=== PATIENT | male | born 1995 | race Caucasian/White ===

== ENCOUNTER 2019-07-02 01:12 | Emergency (ER) | payer BC ==
[2019-07-02 03:49] LABS: #Eosinphils 0.1 thou/uL (0.0-0.7); #Lymphocytes 1.5 thou/uL (1.20-3.40); #Monocytes 0.4 thou/uL (0.11-0.59); #Neutrophils 2.7 thou/uL (1.40-6.50); %Basophils 0.9 % (0.0-1.0); %Monocytes 8.4 % (0.0-10.0); %Neutrophils 55.7 % (42.0-75.0); Hemoglobin 12.9 g/dL (14.0-18.0); Mean Corpuscular HGB CONC 33.3 g/dL (32.0-36.0); Mean Corpuscular Hemoglobin 29.4 pg (27.0-31.0); Mean Corpuscular Volume 88.3 fL (78.0-98.0); Mean Platelet Volume 8.6 fL (7.4-10.4); Platelet Count 138 thou/uL (130-400); RBC Distribution Width 12.3 % (11.5-14.5); White Blood Cell (WBC) Count 4.8 thou/uL (4.8-10.8)
[2019-07-02 04:10] LABS: ALT (SGPT) 16 U/L (8-55); AST (SGOT) 20 U/L (5-34); Albumin 4.3 g/dL (3.5-5.0); Alkaline Phosphatase 68 U/L (40-110); Anion Gap 11 mmol/L (10-20); BUN (Urea Nitrogen) 10 mg/dL (8.9-20.6); Bilirubin, Total 0.4 mg/dL (0.2-1.2); Calc. Creatinine Clearance 0 mL/min (70-130); Carbon Dioxide 26 mmol/L (22-29); Chloride 104 mmol/L (98-107); Estimated GFR-MDRD Greater than 90; Globulin 2.2 g/dL (2.4-3.5); Glucose 79 mg/dL (70-105); Lipase 39 U/L (8-78); Potassium 3.7 mmol/L (3.5-5.1); Protein, Total 6.5 g/dL (6.0-8.3); Sodium 137 mmol/L (136-145)
[2019-07-02] MEDS ORDERED: Haloperidol Lactate 5 MG/ML VIAL ONE (06:45)
[2019-07-02] MEDS ORDERED: diphenhydrAMINE 50 MG/ML VIAL ONE (06:45)
[2019-07-02 08:18] LABS: Bilirubin Negative (Negative); Blood, Urine Negative (Negative); Clarity Clear (Clear); Glucose, Urine (Dipstick) Normal (Negative); Leukocyte Negative Leu/uL (Negative); Nitrite Negative (Negative); Protein, Urine (Dipstick) 20 mg/dL (Neg-Trace); Urobilinogen Normal mg/dL (Less than 2)
--- NOTE | 2019-07-02 09:33 | CT ---
PRELIMINARY REPORT/[facility]/EMERGENCY AFTER HOURS PROCEDURE: PROCEDURE INFORMATION: Exam: CT Abdomen And Pelvis With Contrast Exam date and time: 07/02/2019 3:09 AM Age: 24 years old Clinical history: Abdominal pain; Generalized; Patient HX: Abd starting today, has chronic pacnreatit is. And has a g tube to stomach. TECHNIQUE: Imaging protocol: Computed tomography of the abdomen and pelvis with intravenous contrast. COMPARISON: No relevant prior studies available. FINDINGS: Tubes, catheters and devices: Percutaneous jejunostomy tube in left upper abdomen. Liver: Normal. No mass. Gallbladder and bile ducts: Gallbladder not identified - surgical clips present in fossa. Pancreas: Pancreas appears normal. Spleen: Normal. No splenomegaly. Adrenals: Normal. No mass. Kidneys and ureters: Normal. No hydronephrosis. Stomach and bowel: No evidence of small bowel obstruction. Appendix: Appendix - not identified. No pericecal inflammatory changes. Intraperitoneal space: Unremarkable. No free air. No significant fluid collection. Vasculature: Unremarkable. No abdominal aortic aneurysm. Lymph nodes: Unremarkable. No enlarged lymph nodes. Bladder: Unremarkable as visualized. Reproductive: Prostate appears within normal limits. Bones/joints: Unremarkable. No acute fracture. Soft tissues: Numerous surgical clips in right upper abdomen. IMPRESSION: 1. No evidence of small bowel obstruction. 2. Pancreas appears normal. -- Please correlate with patient pancreas enzyme levels to exclude pancre atitis. Thank you for allowing us to participate in the care of your patient. Dictated and Authenticated by: Marlys Jane MD 07/02/2019 3:42 AM Central Time ([place] & [place]) FINAL REPORT EMERGENT AFTER HOURS CT OF ABDOMEN AND PELVIS PERFORMED WITH COTNRAST ENHANCEMENT: HISTORY: Abdominal pain. History of chronic pancreatitis. COMPARISON: A 08/10/2018 study. FINDINGS: The lung bases are clear. The liver shows no focal masses. The spleen is within normal limits. Pancreas region shows no infla mmatory change. The gallbladder has been removed. Gastrostomy tube seen on the previous examination is no longer present. There is a jejunostomy tube noted. Right and left adrenal glands and right and left kidneys are normal in size and appearance. No signi ficant periaortic mesenteric adenopathy. CT OF PELVIS PERFORMED WITH CONTRAST ENHANCEMENT: There is no evidence of adenopathy, mass, or free fluid. An appendix is not definitely identified, b ut I see no inflammatory change in this region. IMPRESSION: 1. No abnormalities of the abdomen or pelvis. 2. This report is in agreement with the temporary report that was issued by [facility]. POS: [facility]
== END 2019-07-02 07:57 | disposition home or self-care (01) ==
LOC: ERS 01:12
DX: R10.9 Unspecified abdominal pain (principal); R10.817 Generalized abdominal tenderness; Z79.51 Long term (current) use of inhaled steroids; Z79.899 Other long term (current) drug therapy
CPT/HCPCS: 36415; 74177; 80053; 81003; 83690; 85025; 96372; 96374; 96375; J0500; J1200; J1630

== ENCOUNTER 2020-01-21 16:26 | Emergency (ER) | payer BC, OTHER ==
--- NOTE | 2020-01-21 17:24 | RAD ---
KUB INDICATION: Abdominal pain COMPARISON: CT the abdomen and pelvis dated July 02, 2019 FINDINGS: Bowel gas: Unobstructed. There is a percutaneous jejunostomy tube within the left lower quadrant of t he abdomen. Lung bases: Clear. Additional findings: There is a new generator pack with leads projecting cephalad to the left hemitho rax. There are numerous surgical clips again seen within the upper abdomen. Osseous structures: No acute osseous abnormality is demonstrated. IMPRESSION: 1. Stable percutaneous left lower quadrant jejunostomy tube. 2. New generator pack overlying the right mid abdomen with leads projecting cephalad toward the left hemithorax. 3. Bowel gas pattern appears nonobstructed.
[2020-01-21] MEDS ORDERED: Haloperidol Lactate 5 MG/ML VIAL ONE (21:49)
[2020-01-21] MEDS ORDERED: Lorazepam 2 MG/ML VIAL ONE (21:49)
[2020-01-21] MEDS ORDERED: Ketamine 50 MG/ML (10ML VIAL) ONE (22:39)
[2020-01-22] MEDS ORDERED: hydrOXYzine 25 MG TAB ONE (10:44)
[2020-01-22] MEDS ORDERED: Ziprasidone 20 MG CAP ONE ×3 (16:12→22:27)
[2020-01-22] MEDS ORDERED: Haloperidol Lactate 5 MG/ML VIAL ONE (16:26)
[2020-01-23] MEDS ORDERED: Ondansetron ODT 4 MG TAB ONE ×2 (12:03→18:57)
[2020-01-23] MEDS ORDERED: Lorazepam 1 MG TAB ONE (12:03)
[2020-01-23 12:47] LABS: SARS-CoV-2 MS2 Positive; SARS-CoV-2 N Gene Negative; SARS-CoV-2 S Gene Negative; SARS-CoV-2 orf1ab Negative
[2020-01-23] MEDS ORDERED: hydrOXYzine 25 MG TAB ONE (18:57)
[2020-01-24] MEDS ORDERED: traZODone HCl 50 MG TAB ONE (01:15)
[2020-01-24] MEDS ORDERED: risperiDONE 1 MG TAB ONE (01:15)
[2020-01-24] MEDS ORDERED: Ondansetron ODT 4 MG TAB ONE (01:26)
[2020-01-24] MEDS ORDERED: Ziprasidone 20 MG VIAL ONE ×2 (11:20→18:22)
[2020-01-24] MEDS ORDERED: Ondansetron ODT 8 MG TAB ONE ×2 (15:38→22:34)
[2020-01-24] MEDS ORDERED: Metoclopramide HCl 10 MG TAB ONE (20:05)
[2020-01-24] MEDS ORDERED: hydrOXYzine 25 MG TAB ONE ×2 (22:27)
[2020-01-25] MEDS ORDERED: Haloperidol Lactate 5 MG/ML VIAL ONE (00:33)
[2020-01-25] MEDS ORDERED: Ibuprofen 200 MG TAB ONE (04:56)
[2020-01-25] MEDS ORDERED: Ondansetron ODT 8 MG TAB ONE (08:46)
[2020-01-25] MEDS ORDERED: Docusate 100 MG CAP PO SCH (09:00)
[2020-01-25] MEDS ORDERED: Ziprasidone 20 MG CAP ONE (09:09)
== END 2020-01-25 15:34 ==
LOC: ERS 16:26
DX: Z02.89 Encounter for other administrative examinations (principal); F31.9 Bipolar disorder, unspecified; Z79.899 Other long term (current) drug therapy
CPT/HCPCS: 74018; 87635; 96372; J1630; J2060; J3486; Q0162; U0003

== ENCOUNTER 2020-02-05 19:13 | Emergency (ER) | payer BC ==
[2020-02-05] MEDS ORDERED: Lidocaine Viscous Sol 2% 15 ml UD Cup ONE (19:33)
== END 2020-02-05 20:16 | disposition home or self-care (01) ==
LOC: ERS 19:13
DX: K94.20 Gastrostomy complication, unspecified (principal); F31.9 Bipolar disorder, unspecified; Z79.899 Other long term (current) drug therapy
CPT/HCPCS: 99282

== ENCOUNTER 2021-07-11 12:40 | Emergency (ER) | payer MEDICARE, MEDICAID ==
[~2021-07-11 12:40] MED LIST: Iopamidol-370 76% 500 ML 1 ML ONE
[2021-07-11] MEDS ORDERED: Pantoprazole 40 MG VIAL ONE (14:13)
[2021-07-11] MEDS ORDERED: HYDROmorphone 0.5 MG/0.5 ML SYRINGE ONE ×2 (14:13→16:33)
[2021-07-11] MEDS ORDERED: Ondansetron PF 4 MG/2 ML Vial ONE (14:13)
[2021-07-11 14:21] LABS: #Lymphocytes 1.1 thou/uL (1.20-3.40); #Monocytes 0.5 thou/uL (0.11-0.59); #Neutrophils 3.3 thou/uL (1.40-6.50); %Basophils 0.6 % (0.0-1.0); %Eosinophils 0.7 % (0.0-10.0); %Lymphocytes 21.3 % (21.0-51.0); %Monocytes 10.8 % (0.0-10.0); %Neutrophils 66.6 % (42.0-75.0); Hemoglobin 13.1 g/dL (14.0-18.0); Mean Corpuscular HGB CONC 33.7 g/dL (32.0-36.0); Mean Corpuscular Volume 89.1 fL (78.0-98.0); Mean Platelet Volume 7.3 fL (7.4-10.4); Platelet Count 227 thou/uL (130-400); RBC Distribution Width 12.2 % (11.5-14.5); Red Blood Cell (RBC) Count 4.36 mill/uL (4.70-6.10); White Blood Cell (WBC) Count 4.9 thou/uL (4.8-10.8)
[2021-07-11 14:41] LABS: ALT (SGPT) 33 U/L (8-55); AST (SGOT) 26 U/L (5-34); Albumin 4.2 g/dL (3.5-5.0); Alkaline Phosphatase 63 U/L (40-110); Anion Gap 14 mmol/L (10-20); BUN (Urea Nitrogen) 8 mg/dL (8.9-20.6); Bilirubin, Total 0.4 mg/dL (0.2-1.2); Calc. Creatinine Clearance 0 mL/min (70-130); Calcium 9.6 mg/dL (7.8-10.44); Carbon Dioxide 27 mmol/L (22-29); Chloride 102 mmol/L (98-107); Globulin 2.9 g/dL (2.4-3.5); Glucose 107 mg/dL (70-105); Lipase 300 U/L (8-78); Protein, Total 7.1 g/dL (6.0-8.3); Sodium 139 mmol/L (136-145)
== END 2021-07-11 16:44 | disposition home or self-care (01) ==
LOC: ERS 12:40
DX: K86.1 Other chronic pancreatitis (principal); K31.84 Gastroparesis; Z87.891 Personal history of nicotine dependence
CPT/HCPCS: 36415; 74177; 80053; 83605; 83690; 85025; 96374; 96375; 96376; C9113; J1170; J2405; Q9967

== ENCOUNTER 2022-11-04 21:32 | Emergency (ER) | payer MEDICARE, MEDICAID ==
[2022-11-04 22:12] LABS: #Eosinphils 0.1 thou/uL (0.0-0.7); #Lymphocytes 1.1 thou/uL (1.20-3.40); #Monocytes 0.9 thou/uL (0.11-0.59); #Neutrophils 5.5 thou/uL (1.40-6.50); %Basophils 0.6 % (0.0-1.0); %Eosinophils 1.1 % (0.0-10.0); %Lymphocytes 13.9 % (21.0-51.0); %Monocytes 11.5 % (0.0-10.0); %Neutrophils 72.9 % (42.0-75.0); Hemoglobin 13.2 g/dL (14.0-18.0); Mean Corpuscular HGB CONC 30.7 g/dL (32.0-36.0); Mean Corpuscular Hemoglobin 26.2 pg (27.0-31.0); Mean Corpuscular Volume 85.4 fl (78.0-98.0); Mean Platelet Volume 8.3 fL (7.4-10.4); Platelet Count 379 10x3/uL (130-400); Red Blood Cell (RBC) Count 5.02 mill/uL (4.70-6.10); White Blood Cell (WBC) Count 7.6 10x3/uL (4.8-10.8)
[2022-11-04 22:33] LABS: ALT (SGPT) 28 U/L (8-55); AST (SGOT) 23 U/L (5-34); Albumin 4.4 g/dL (3.5-5.0); Alkaline Phosphatase 103 U/L (40-110); Anion Gap 15 mmol/L (10-20); BUN (Urea Nitrogen) 11 mg/dL (8.9-20.6); Bilirubin, Total 0.3 mg/dL (0.2-1.2); Calc. Creatinine Clearance 0 mL/min (70-130); Calcium 9.4 mg/dL (7.8-10.44); Carbon Dioxide 24 mmol/L (22-29); Chloride 99 mmol/L (98-107); Estimated GFR 122; Globulin 2.9 g/dL (2.4-3.5); Glucose 169 mg/dL (70-105); Lipase Less than 4 U/L (8-78); Potassium 3.5 mmol/L (3.5-5.1); Protein, Total 7.3 g/dL (6.0-8.3); Sodium 134 mmol/L (136-145)
[2022-11-04] MEDS ORDERED: HYDROcodone/Acetaminophen 5/325 mg Tablet ONE (23:29)
[2022-11-04] MEDS ORDERED: Metoclopramide HCl 10 MG TAB ONE (23:36)
[2022-11-05 01:18] LABS: SARS-CoV-2 NAA Rapid Test Not Detected (NotDetected)
[2022-11-05] MEDS ORDERED: HYDROcodone/Acetaminophen 5/325 mg Tablet ONE (05:51)
[2022-11-05] MEDS ORDERED: Ondansetron PF 4 MG/2 ML Vial ONE (05:51)
[2022-11-05] MEDS ORDERED: HYDROmorphone 0.5 MG/0.5 ML SYRINGE ONE ×2 (06:00→07:43)
[2022-11-05] MEDS ORDERED: Metoclopramide HCl 10 MG/2 ML VIAL ONE (06:26)
[2022-11-05] MEDS ORDERED: Promethazine HCl 12.5 MG in Sodium Chloride 0.9% 50 ML IVPB SCH (08:00)
== END 2022-11-05 08:40 | disposition short-term general hospital (02) ==
LOC: ERS 21:32
DX: K94.23 Gastrostomy malfunction (principal); E11.9 Type 2 diabetes mellitus without complications; Z20.822 Contact with and (suspected) exposure to COVID-19
CPT/HCPCS: 71045; 80053; 83690; 85025; U0002; 36415; 96365; 96375; 96376; J1170; J2405; J2550; J2765

== ENCOUNTER 2022-12-11 18:35 | Emergency (ER) | payer BC, MEDICARE, MEDICAID ==
[2022-12-11] MEDS ORDERED: Morphine 4 MG/ML VIAL ONE ×3 (19:13→23:15)
[2022-12-11] MEDS ORDERED: Ondansetron ODT 4 MG TAB ONE (19:13)
[2022-12-11 20:24] LABS: Bilirubin Negative (Negative); Blood, Urine Negative (Negative); Clarity Clear (Clear); Glucose, Urine (Dipstick) Normal (Negative); Ketone, Urine Trace mg/dL (Negative); Leukocyte Negative Leu/uL (Negative); Nitrite Negative (Negative); Protein, Urine (Dipstick) 10 mg/dL (Neg-Trace)
[2022-12-11 22:28] LABS: #Eosinphils 0.1 thou/uL (0.0-0.7); #Lymphocytes 1.6 thou/uL (1.20-3.40); #Monocytes 0.8 thou/uL (0.11-0.59); #Neutrophils 3.5 thou/uL (1.40-6.50); %Basophils 0.8 % (0.0-1.0); %Eosinophils 1.7 % (0.0-10.0); %Lymphocytes 26.5 % (21.0-51.0); %Monocytes 12.9 % (0.0-10.0); %Neutrophils 58.1 % (42.0-75.0); Hemoglobin 11.6 g/dL (14.0-18.0); Mean Corpuscular HGB CONC 31.8 g/dL (32.0-36.0); Mean Corpuscular Hemoglobin 28.7 pg (27.0-31.0); Platelet Count 462 10x3/uL (130-400); RBC Distribution Width 15.5 % (11.5-14.5); Red Blood Cell (RBC) Count 4.07 mill/uL (4.70-6.10); White Blood Cell (WBC) Count 5.9 10x3/uL (4.8-10.8)
[2022-12-11 22:50] LABS: ALT (SGPT) 44 U/L (8-55); AST (SGOT) 47 U/L (5-34); Alkaline Phosphatase 103 U/L (40-110); Anion Gap 12 mmol/L (10-20); BUN (Urea Nitrogen) 12 mg/dL (8.9-20.6); Bilirubin, Total 0.2 mg/dL (0.2-1.2); Calc. Creatinine Clearance 0 mL/min (70-130); Calcium 9.2 mg/dL (7.8-10.44); Carbon Dioxide 26 mmol/L (22-29); Chloride 107 mmol/L (98-107); Estimated GFR 125; Globulin 2.5 g/dL (2.4-3.5); Glucose 204 mg/dL (70-105); Potassium 4.5 mmol/L (3.5-5.1); Protein, Total 6.5 g/dL (6.0-8.3); Sodium 140 mmol/L (136-145)
== END 2022-12-11 23:20 | disposition home or self-care (01) ==
LOC: ERS 18:35
DX: K94.23 Gastrostomy malfunction (principal); E11.9 Type 2 diabetes mellitus without complications; Z87.891 Personal history of nicotine dependence; Z79.4 Long term (current) use of insulin
CPT/HCPCS: 36415; 74018; 80053; 81003; 85025; 87070; 87077; 87186; 87205; 96372; J2270; Q0162

== ENCOUNTER 2023-01-19 12:30 | Emergency (ER) | payer MEDICARE ==
[~2023-01-19 12:30] MED LIST changes: -Iopamidol-370 76% 500 ML 1 ML ONE; +Iopamidol-370 76% 500 ML MDV (1 ML CHARGE) ONE
[2023-01-19 13:49] LABS: #Basophils 0.1 thou/uL (0.0-0.2); #Monocytes 1.1 thou/uL (0.11-0.59); #Neutrophils 8.3 thou/uL (1.40-6.50); %Basophils 0.5 % (0.0-1.0); %Lymphocytes 7.5 % (21.0-51.0); %Monocytes 10.9 % (0.0-10.0); %Neutrophils 80.9 % (42.0-75.0); Hemoglobin 14.3 g/dL (14.0-18.0); Mean Corpuscular HGB CONC 32.5 g/dL (32.0-36.0); Mean Corpuscular Volume 86.1 fl (78.0-98.0); Mean Platelet Volume 9.2 fL (7.4-10.4); Platelet Count 413 10x3/uL (130-400); RBC Distribution Width 14.9 % (11.5-14.5); Red Blood Cell (RBC) Count 5.11 mill/uL (4.70-6.10); White Blood Cell (WBC) Count 10.2 10x3/uL (4.8-10.8)
[2023-01-19 14:19] LABS: ALT (SGPT) 52 U/L (8-55); AST (SGOT) 25 U/L (5-34); Albumin 4.8 g/dL (3.5-5.0); Alkaline Phosphatase 117 U/L (40-110); Anion Gap 14 mmol/L (10-20); BUN (Urea Nitrogen) 15 mg/dL (8.9-20.6); Bilirubin, Total 0.4 mg/dL (0.2-1.2); CK (CPK) 127 U/L (30-200); Calc. Creatinine Clearance 0 mL/min (70-130); Calcium 9.9 mg/dL (7.8-10.44); Carbon Dioxide 27 mmol/L (22-29); Chloride 97 mmol/L (98-107); Estimated GFR 118; Globulin 3.2 g/dL (2.4-3.5); Glucose 181 mg/dL (70-105); Lipase Less than 4 U/L (8-78); Sodium 134 mmol/L (136-145)
[2023-01-19] MEDS ORDERED: Ondansetron PF 4 MG/2 ML Vial ONE ×3 (14:24→17:45)
[2023-01-19] MEDS ORDERED: Morphine 4 MG/ML VIAL ONE ×2 (16:25→17:45)
[2023-01-19 16:58] LABS: Bacteria/HPF None Seen HPF (None Seen); Bilirubin Negative (Negative); Blood, Urine Trace (Negative); CAUTI Indications for Culture Dysuria,urgency,freq; Clarity Clear (Clear); Glucose, Urine (Dipstick) Normal (Negative); Ketone, Urine 60 mg/dL (Negative); Leukocyte Negative Leu/uL (Negative); Nitrite Negative (Negative); Protein, Urine (Dipstick) 30 mg/dL (Neg-Trace); RBC/HPF None Seen HPF (0-3); Specific Gravity, Urine 1.036 (1.002-1.036); Squamous Epithelial None Seen HPF (0-3); WBC/HPF 0-3 HPF (0-3); pH, Urine 6.5 (5.0-9.0)
[2023-01-19 17:00] LABS: Urine Culture Reflex No No
[2023-01-19] MEDS ORDERED: Pantoprazole 40 MG VIAL ONE (17:45)
[2023-01-19] MEDS ORDERED: Metoclopramide HCl 10 MG/2 ML VIAL ONE (17:48)
[2023-01-19] MEDS ORDERED: HYDROcodone/Acetaminophen 5/325 mg Tablet ONE (19:26)
== END 2023-01-19 19:37 | disposition home or self-care (01) ==
LOC: ERS 12:30
DX: K52.9 Noninfective gastroenteritis and colitis, unspecified (principal); E86.0 Dehydration; R11.10 Vomiting, unspecified; E11.9 Type 2 diabetes mellitus without complications; Z87.891 Personal history of nicotine dependence; Z79.4 Long term (current) use of insulin
CPT/HCPCS: 36415; 74177; 80053; 81001; 82550; 83690; 85025; 96361; 96365; 96375; 96376; C9113; J2270; J2405; J2765; Q9967

== ENCOUNTER 2023-01-20 13:20 | Inpatient (IN) | payer BC, MEDICARE, MEDICAID ==
[2023-01-20 14:25] LABS: #Monocytes 0.4 thou/uL (0.11-0.59); #Neutrophils 5.5 thou/uL (1.40-6.50); %Basophils 0.6 % (0.0-1.0); %Lymphocytes 7.9 % (21.0-51.0); %Neutrophils 85.2 % (42.0-75.0); Hemoglobin 14.8 g/dL (14.0-18.0); Mean Corpuscular HGB CONC 32.6 g/dL (32.0-36.0); Mean Corpuscular Hemoglobin 28.5 pg (27.0-31.0); Mean Corpuscular Volume 87.3 fl (78.0-98.0); Mean Platelet Volume 9.5 fL (7.4-10.4); Platelet Count 400 10x3/uL (130-400); RBC Distribution Width 14.7 % (11.5-14.5); White Blood Cell (WBC) Count 6.5 10x3/uL (4.8-10.8)
[2023-01-20] MEDS ORDERED: Morphine 4 MG/ML VIAL ONE ×2 (14:28→15:45)
[2023-01-20] MEDS ORDERED: Pantoprazole 40 MG VIAL ONE (14:28)
[2023-01-20] MEDS ORDERED: Promethazine HCl 25 MG in Sodium Chloride 0.9% 50 ML IVPB SCH (14:45)
[2023-01-20 14:49] LABS: ALT (SGPT) 44 U/L (8-55); AST (SGOT) 25 U/L (5-34); Albumin 4.6 g/dL (3.5-5.0); Alkaline Phosphatase 108 U/L (40-110); Anion Gap 18 mmol/L (10-20); BUN (Urea Nitrogen) 14 mg/dL (8.9-20.6); Bilirubin, Total 0.5 mg/dL (0.2-1.2); Calc. Creatinine Clearance 0 mL/min (70-130); Calcium 9.1 mg/dL (7.8-10.44); Carbon Dioxide 21 mmol/L (22-29); Chloride 99 mmol/L (98-107); Estimated GFR 124; Glucose 109 mg/dL (70-105); Lipase Less than 4 U/L (8-78); Potassium 3.7 mmol/L (3.5-5.1); Protein, Total 7.6 g/dL (6.0-8.3); Sodium 134 mmol/L (136-145)
[2023-01-20] MEDS ORDERED: metroNIDAZOLE 500 MG/100 ML BAG ONE (15:45)
[2023-01-20] MEDS ORDERED: Acetaminophen 325 MG TAB PO PRN (16:25)
[2023-01-20] MEDS ORDERED: Glucagon 1 MG/ML KIT IM PRN (16:29)
[2023-01-20] MEDS ORDERED: Dextrose 50% Abboject 50 ML SYRINGE SLOW IVP PRN (16:29)
[2023-01-20] MEDS ORDERED: Dextrose 5% in Water 1,000 ML IV PRN (16:29)
[2023-01-20] MEDS: Sodium Chloride 0.9% 1,000 ML IV SCH (17:19)
[2023-01-20 17:34] VITALS: BMI 20.3
[2023-01-20] MEDS: Morphine 2 MG/ML VIAL SLOW IVP PRN ×2 (18:12→21:56)
[2023-01-20] MEDS: Ondansetron PF 4 MG/2 ML Vial IVP PRN (18:14)
[2023-01-20] MEDS: RisperDAL Oral Solution 1 MG/ML UDCUP PO SCH (20:50)
[2023-01-20] MEDS: traZODone HCl 150 MG TAB PO SCH (20:50)
[2023-01-20] MEDS ORDERED: Non-Formulary Item 1 EACH (Lansoprazole [Prevacid] 30 MG Capsule.Dr) PO SCH (21:00)
[2023-01-20] MEDS: metroNIDAZOLE 500 MG in Premix Bag 1 BAG IVPB SCH (22:00)
[2023-01-21] MEDS: HumaLOG 300 UNITS/3 ML VIAL SC PRN (01:37)
[2023-01-21] MEDS: Ondansetron PF 4 MG/2 ML Vial IVP PRN ×2 (03:40→16:05)
[2023-01-21] MEDS: Morphine 2 MG/ML VIAL SLOW IVP PRN ×5 (03:40→21:15)
[2023-01-21] MEDS: metroNIDAZOLE 500 MG in Premix Bag 1 BAG IVPB SCH ×3 (05:17→21:16)
[2023-01-21 06:07] LABS: #Eosinphils 0.1 thou/uL (0.0-0.7); #Monocytes 0.7 thou/uL (0.11-0.59); #Neutrophils 1.3 thou/uL (1.40-6.50); %Basophils 1.1 % (0.0-1.0); %Eosinophils 1.9 % (0.0-10.0); %Lymphocytes 43.2 % (21.0-51.0); %Monocytes 18.4 % (0.0-10.0); %Neutrophils 35.4 % (42.0-75.0); Hemoglobin 11.9 g/dL (14.0-18.0); Mean Corpuscular HGB CONC 32.9 g/dL (32.0-36.0); Mean Corpuscular Hemoglobin 28.3 pg (27.0-31.0); Mean Platelet Volume 9.7 fL (7.4-10.4); Platelet Count 355 10x3/uL (130-400); RBC Distribution Width 14.6 % (11.5-14.5); Red Blood Cell (RBC) Count 4.21 mill/uL (4.70-6.10); White Blood Cell (WBC) Count 3.7 10x3/uL (4.8-10.8)
[2023-01-21] MEDS: Sodium Chloride 0.9% 1,000 ML IV SCH ×2 (06:28→14:58)
[2023-01-21 06:38] LABS: Anion Gap 13 mmol/L (10-20); BUN (Urea Nitrogen) 10 mg/dL (8.9-20.6); Calc. Creatinine Clearance 123 mL/min (70-130); Calcium 8.4 mg/dL (7.8-10.44); Carbon Dioxide 23 mmol/L (22-29); Chloride 104 mmol/L (98-107); Estimated GFR 127; Glucose 66 mg/dL (70-105); Potassium 3.2 mmol/L (3.5-5.1); Sodium 137 mmol/L (136-145)
[2023-01-21] MEDS: Pantoprazole 40 MG VIAL IVP SCH (08:07)
[2023-01-21] MEDS ORDERED: Potassium Chloride 20 MEQ TAB PER TUBE SCH (09:15)
[2023-01-21] MEDS: RisperDAL Oral Solution 1 MG/ML UDCUP PO SCH (11:40)
[2023-01-21] MEDS ORDERED: risperiDONE 1 MG TAB PO SCH (11:45)
[2023-01-21] MEDS: Insulin Glargine 30 UNITS/0.3 ML VIAL SC SCH (12:00)
[2023-01-21] MEDS: risperiDONE 1 MG TAB PO SCH (21:16)
[2023-01-21] MEDS: traZODone HCl 150 MG TAB PO SCH (23:18)
[2023-01-22] MEDS: HumaLOG 300 UNITS/3 ML VIAL SC PRN ×2 (00:02→05:42)
[2023-01-22] MEDS: Morphine 2 MG/ML VIAL SLOW IVP PRN ×5 (01:40→21:20)
[2023-01-22 05:52] LABS: #Eosinphils 0.1 thou/uL (0.0-0.7); #Monocytes 0.9 thou/uL (0.11-0.59); #Neutrophils 3.4 thou/uL (1.40-6.50); %Basophils 0.7 % (0.0-1.0); %Eosinophils 1.5 % (0.0-10.0); %Lymphocytes 19.4 % (21.0-51.0); %Monocytes 15.7 % (0.0-10.0); %Neutrophils 62.5 % (42.0-75.0); Hemoglobin 12.1 g/dL (14.0-18.0); Mean Corpuscular Hemoglobin 28.3 pg (27.0-31.0); Mean Corpuscular Volume 85.7 fl (78.0-98.0); Mean Platelet Volume 9.8 fL (7.4-10.4); Platelet Count 370 10x3/uL (130-400); RBC Distribution Width 14.8 % (11.5-14.5); Red Blood Cell (RBC) Count 4.28 mill/uL (4.70-6.10); White Blood Cell (WBC) Count 5.4 10x3/uL (4.8-10.8)
[2023-01-22 06:15] LABS: Anion Gap 9 mmol/L (10-20); BUN (Urea Nitrogen) 6 mg/dL (8.9-20.6); Calc. Creatinine Clearance 120 mL/min (70-130); Calcium 8.8 mg/dL (7.8-10.44); Carbon Dioxide 28 mmol/L (22-29); Chloride 105 mmol/L (98-107); Estimated GFR 126; Glucose 160 mg/dL (70-105); Potassium 4.3 mmol/L (3.5-5.1); Sodium 138 mmol/L (136-145)
[2023-01-22] MEDS: metroNIDAZOLE 500 MG in Premix Bag 1 BAG IVPB SCH ×3 (06:46→21:20)
[2023-01-22] MEDS: Pantoprazole 40 MG VIAL IVP SCH (08:52)
[2023-01-22] MEDS: risperiDONE 1 MG TAB PO SCH ×2 (08:53→21:20)
[2023-01-22] MEDS: Sodium Chloride 0.9% 1,000 ML IV SCH (11:47)
[2023-01-22] MEDS ORDERED: Ondansetron ORAL SOLN. 4 MG/5 ML UDCUP PO PRN (14:08)
[2023-01-22] MEDS: Insulin Glargine 30 UNITS/0.3 ML VIAL SC SCH (14:08)
[2023-01-22] MEDS ORDERED: Promethazine HCl 6.25 MG/5 ML Syrup PO PRN (14:22)
[2023-01-22] MEDS: Pancrelipase DR 12,000 1 CAP PO SCH (18:03)
[2023-01-22] MEDS ORDERED: Pancrelipase DR 12,000 1 CAP PO PRN (21:00)
[2023-01-22] MEDS: traZODone HCl 150 MG TAB PO SCH (21:20)
[2023-01-23] MEDS: Sodium Chloride 0.9% 1,000 ML IV SCH ×2 (02:58→08:45)
[2023-01-23] MEDS: Morphine 2 MG/ML VIAL SLOW IVP PRN ×2 (05:05→09:38)
[2023-01-23] MEDS: metroNIDAZOLE 500 MG in Premix Bag 1 BAG IVPB SCH (05:06)
[2023-01-23] MEDS: HumaLOG 300 UNITS/3 ML VIAL SC PRN (05:09)
[2023-01-23 06:17] LABS: #Basophils 0.1 thou/uL (0.0-0.2); #Eosinphils 0.2 thou/uL (0.0-0.7); #Monocytes 0.7 thou/uL (0.11-0.59); #Neutrophils 5.8 thou/uL (1.40-6.50); %Basophils 0.7 % (0.0-1.0); %Eosinophils 2.2 % (0.0-10.0); %Lymphocytes 17.1 % (21.0-51.0); %Monocytes 8.1 % (0.0-10.0); %Neutrophils 71.7 % (42.0-75.0); Hemoglobin 11.9 g/dL (14.0-18.0); Mean Corpuscular HGB CONC 32.4 g/dL (32.0-36.0); Mean Corpuscular Hemoglobin 28.5 pg (27.0-31.0); Mean Platelet Volume 9.9 fL (7.4-10.4); Platelet Count 346 10x3/uL (130-400); RBC Distribution Width 14.8 % (11.5-14.5); Red Blood Cell (RBC) Count 4.17 mill/uL (4.70-6.10); White Blood Cell (WBC) Count 8.1 10x3/uL (4.8-10.8)
[2023-01-23 08:13] VITALS: BP 105/50; TEMP 98.4
[2023-01-23] MEDS: Pancrelipase DR 12,000 1 CAP PO SCH ×2 (08:44→12:41)
[2023-01-23] MEDS: risperiDONE 1 MG TAB PO SCH (08:44)
[2023-01-23] MEDS: Pantoprazole 40 MG VIAL IVP SCH (08:45)
[2023-01-23] MEDS: Insulin Glargine 30 UNITS/0.3 ML VIAL SC SCH (12:41)
[2023-01-23 13:22] LABS: Anion Gap 14 mmol/L (10-20); BUN (Urea Nitrogen) 10 mg/dL (8.9-20.6); Calc. Creatinine Clearance 106 mL/min (70-130); Calcium 8.6 mg/dL (7.8-10.44); Carbon Dioxide 22 mmol/L (22-29); Chloride 103 mmol/L (98-107); Estimated GFR 121; Glucose 287 mg/dL (70-105); Potassium 3.5 mmol/L (3.5-5.1); Sodium 135 mmol/L (136-145)
[2023-01-23 23:11] LABS: Campy jejuni + coli by PCR Negative (Negative); STEC Shiga Toxin 1+2 Negative (Negative); Salmonella spp. by PCR Negative (Negative); Shigella spp + EIEC by PCR Negative (Negative)
== END 2023-01-23 14:07 | disposition home or self-care (01) | DRG 392 ==
LOC: ERS 13:20 → T4-B 16:58 → OBSVTOIN 01-21 15:32
PROVIDERS: ADMIT Internal Medicine; ATTEND Hospitalist
DX: K52.9 Noninfective gastroenteritis and colitis, unspecified (principal); E87.1 Hypo-osmolality and hyponatremia; F31.9 Bipolar disorder, unspecified; E11.9 Type 2 diabetes mellitus without complications; J45.909 Unspecified asthma, uncomplicated; F43.10 Post-traumatic stress disorder, unspecified; Z88.1 Allergy status to other antibiotic agents; Z91.040 Latex allergy status; Z88.0 Allergy status to penicillin; Z91.09 Other allergy status, other than to drugs and biological substances; Z88.5 Allergy status to narcotic agent; Z79.899 Other long term (current) drug therapy; Z98.890 Other specified postprocedural states; Z95.0 Presence of cardiac pacemaker; Z90.49 Acquired absence of other specified parts of digestive tract; Z90.81 Acquired absence of spleen; Z94.89 Other transplanted organ and tissue status
CPT/HCPCS: 36415; 36416; 74018; 74177; 80048; 80053; 81001; 82550; 83690; 85025; 87505; 96361; 96365; 96375; 96376; C9113; G0378; J0744; J0780; J1815; J2270; J2272; J2405; J2550; J2765; J7050; Q9967

== ENCOUNTER 2023-01-26 09:07 | Emergency (ER) | payer BC, MEDICARE, MEDICAID ==
[2023-01-26] MEDS ORDERED: Morphine 4 MG/ML VIAL ONE (10:37)
[2023-01-26 10:40] LABS: #Basophils 0.1 thou/uL (0.0-0.2); #Eosinphils 0.1 thou/uL (0.0-0.7); #Monocytes 0.9 thou/uL (0.11-0.59); #Neutrophils 16.7 thou/uL (1.40-6.50); %Basophils 0.4 % (0.0-1.0); %Eosinophils 0.7 % (0.0-10.0); %Lymphocytes 6.5 % (21.0-51.0); %Monocytes 4.5 % (0.0-10.0); %Neutrophils 87.5 % (42.0-75.0); Hemoglobin 11.4 g/dL (14.0-18.0); Mean Corpuscular HGB CONC 32.6 g/dL (32.0-36.0); Mean Corpuscular Hemoglobin 28.6 pg (27.0-31.0); Mean Corpuscular Volume 87.7 fl (78.0-98.0); Mean Platelet Volume 9.8 fL (7.4-10.4); Platelet Count 337 10x3/uL (130-400); RBC Distribution Width 15.5 % (11.5-14.5); Red Blood Cell (RBC) Count 3.99 mill/uL (4.70-6.10)
[2023-01-26 11:04] LABS: ALT (SGPT) 26 U/L (8-55); AST (SGOT) 19 U/L (5-34); Alkaline Phosphatase 78 U/L (40-110); Anion Gap 11 mmol/L (10-20); BUN (Urea Nitrogen) 14 mg/dL (8.9-20.6); Bilirubin, Total 0.3 mg/dL (0.2-1.2); Calc. Creatinine Clearance 0 mL/min (70-130); Calcium 8.8 mg/dL (7.8-10.44); Carbon Dioxide 26 mmol/L (22-29); Chloride 100 mmol/L (98-107); Estimated GFR 102; Globulin 2.3 g/dL (2.4-3.5); Glucose 334 mg/dL (70-105); Potassium 4.5 mmol/L (3.5-5.1); Protein, Total 6.3 g/dL (6.0-8.3); Sodium 132 mmol/L (136-145)
== END 2023-01-26 13:00 | disposition home or self-care (01) ==
LOC: ERS 09:07
DX: E11.65 Type 2 diabetes mellitus with hyperglycemia (principal); R10.11 Right upper quadrant pain; D72.829 Elevated white blood cell count, unspecified; Z79.899 Other long term (current) drug therapy; Z79.4 Long term (current) use of insulin; Z79.01 Long term (current) use of anticoagulants
CPT/HCPCS: 36415; 36416; 80053; 85025; 96374; J2270

== ENCOUNTER 2023-03-16 17:26 | Emergency (ER) | payer BC, MEDICARE ==
[2023-03-16 17:58] LABS: #Monocytes 0.4 thou/uL (0.11-0.59); #Neutrophils 8.2 thou/uL (1.40-6.50); %Basophils 0.3 % (0.0-1.0); %Lymphocytes 4.7 % (21.0-51.0); %Monocytes 4.7 % (0.0-10.0); %Neutrophils 90.1 % (42.0-75.0); Hematocrit 43.4 % (42.0-52.0); Hemoglobin 14.3 g/dL (14.0-18.0); Mean Corpuscular HGB CONC 32.9 g/dL (32.0-36.0); Mean Corpuscular Hemoglobin 28.3 pg (27.0-31.0); Mean Corpuscular Volume 85.8 fl (78.0-98.0); Mean Platelet Volume 9.3 fL (7.4-10.4); Platelet Count 366 10x3/uL (130-400); RBC Distribution Width 14.4 % (11.5-14.5); Red Blood Cell (RBC) Count 5.06 mill/uL (4.70-6.10); White Blood Cell (WBC) Count 9.1 10x3/uL (4.8-10.8)
[2023-03-16] MEDS ORDERED: Morphine 4 MG/ML VIAL ONE (17:59)
[2023-03-16] MEDS ORDERED: diphenhydrAMINE 50 MG/ML VIAL ONE (17:59)
[2023-03-16] MEDS ORDERED: Metoclopramide HCl 10 MG/2 ML VIAL ONE (17:59)
[2023-03-16] MEDS ORDERED: Morphine 2 MG/ML VIAL ONE (17:59)
[2023-03-16 18:23] LABS: ALT (SGPT) 132 U/L (8-55); AST (SGOT) 73 U/L (5-34); Albumin 4.9 g/dL (3.5-5.0); Alkaline Phosphatase 123 U/L (40-110); Anion Gap 14 mmol/L (10-20); BUN (Urea Nitrogen) 10 mg/dL (8.9-20.6); Bilirubin, Total 0.5 mg/dL (0.2-1.2); Calc. Creatinine Clearance 0 mL/min (70-130); Calcium 10.2 mg/dL (7.8-10.44); Carbon Dioxide 25 mmol/L (22-29); Chloride 101 mmol/L (98-107); Estimated GFR 118; Globulin 3.4 g/dL (2.4-3.5); Glucose 259 mg/dL (70-105); Lipase Less than 4 U/L (8-78); Magnesium 1.5 mg/dL (1.6-2.6); Potassium 4.1 mmol/L (3.5-5.1); Protein, Total 8.3 g/dL (6.0-8.3); Sodium 136 mmol/L (136-145)
[2023-03-16] MEDS ORDERED: Ondansetron PF 4 MG/2 ML Vial ONE (18:59)
[2023-03-16] MEDS ORDERED: Magnesium 2 GM/50 ML BAG (IN WATER) ONE (18:59)
[2023-03-16] MEDS ORDERED: Mag-Al 1200 mg/1200 mg/30 ML UDCUP ONE (19:17)
== END 2023-03-16 19:13 | disposition home or self-care (01) ==
LOC: ERS 17:26
DX: R11.2 Nausea with vomiting, unspecified (principal); R10.84 Generalized abdominal pain; E83.42 Hypomagnesemia; E11.9 Type 2 diabetes mellitus without complications; Z87.891 Personal history of nicotine dependence
CPT/HCPCS: 80053; 83690; 83735; 84484; 85025; 93005; 96361; 96365; 96367; 96375; J1200; J2270; J2272; J2405; J2765; J3475

== ENCOUNTER 2023-03-17 08:33 | Emergency (ER) | payer BC, MEDICARE ==
[2023-03-17] MEDS ORDERED: Haloperidol Lactate 5 MG/ML VIAL ONE (08:50)
[2023-03-17] MEDS ORDERED: Morphine 4 MG/ML VIAL ONE ×2 (09:27→11:05)
[2023-03-17] MEDS ORDERED: Promethazine HCl 25 MG/ML VIAL ONE (09:27)
[2023-03-17 09:59] LABS: #Basophils 0.1 thou/uL (0.0-0.2); #Monocytes 1.2 thou/uL (0.11-0.59); #Neutrophils 6.5 thou/uL (1.40-6.50); %Basophils 0.9 % (0.0-1.0); %Eosinophils 0.1 % (0.0-10.0); %Lymphocytes 10.6 % (21.0-51.0); %Monocytes 13.8 % (0.0-10.0); %Neutrophils 74.3 % (42.0-75.0); Hematocrit 40.4 % (42.0-52.0); Hemoglobin 13.2 g/dL (14.0-18.0); Mean Corpuscular HGB CONC 32.7 g/dL (32.0-36.0); Mean Corpuscular Hemoglobin 28.3 pg (27.0-31.0); Mean Corpuscular Volume 86.7 fl (78.0-98.0); Mean Platelet Volume 9.5 fL (7.4-10.4); Platelet Count 351 10x3/uL (130-400); RBC Distribution Width 14.8 % (11.5-14.5); Red Blood Cell (RBC) Count 4.66 mill/uL (4.70-6.10); White Blood Cell (WBC) Count 8.8 10x3/uL (4.8-10.8)
[2023-03-17 10:30] LABS: ALT (SGPT) 97 U/L (8-55); AST (SGOT) 53 U/L (5-34); Albumin 4.2 g/dL (3.5-5.0); Alkaline Phosphatase 102 U/L (40-110); Anion Gap 14 mmol/L (10-20); BUN (Urea Nitrogen) 13 mg/dL (8.9-20.6); Bilirubin, Total 0.5 mg/dL (0.2-1.2); Calc. Creatinine Clearance 0 mL/min (70-130); Calcium 8.8 mg/dL (7.8-10.44); Carbon Dioxide 21 mmol/L (22-29); Chloride 104 mmol/L (98-107); Estimated GFR 122; Globulin 2.6 g/dL (2.4-3.5); Glucose 219 mg/dL (70-105); Lipase Less than 4 U/L (8-78); Potassium 4.2 mmol/L (3.5-5.1); Protein, Total 6.8 g/dL (6.0-8.3); Sodium 135 mmol/L (136-145)
[2023-03-17] MEDS ORDERED: Ondansetron PF 4 MG/2 ML Vial ONE (11:05)
[2023-03-17] MEDS ORDERED: Iopamidol-370 76% 500 ML MDV (1 ML CHARGE) ONE (12:37)
== END 2023-03-17 11:34 | disposition home or self-care (01) ==
LOC: ERS 08:33
DX: R10.9 Unspecified abdominal pain (principal); E11.9 Type 2 diabetes mellitus without complications; Z87.891 Personal history of nicotine dependence
CPT/HCPCS: 36415; 74177; 80053; 83690; 85025; 96365; 96375; 96376; J1630; J2270; J2405; J2550; Q9967

== ENCOUNTER 2023-03-18 22:21 | Emergency (ER) | payer BC, MEDICARE ==
[2023-03-18] MEDS ORDERED: Promethazine HCl 25 MG/ML VIAL ONE (22:39)
[2023-03-18] MEDS ORDERED: Morphine 4 MG/ML VIAL ONE (22:48)
[2023-03-18 22:59] LABS: #Basophils 0.1 thou/uL (0.0-0.2); #Monocytes 1.3 thou/uL (0.11-0.59); %Basophils 1.1 % (0.0-1.0); %Lymphocytes 15.4 % (21.0-51.0); %Monocytes 17.4 % (0.0-10.0); %Neutrophils 65.8 % (42.0-75.0); Hematocrit 43.6 % (42.0-52.0); Hemoglobin 14.6 g/dL (14.0-18.0); Mean Corpuscular HGB CONC 33.5 g/dL (32.0-36.0); Mean Corpuscular Hemoglobin 28.8 pg (27.0-31.0); Mean Platelet Volume 9.7 fL (7.4-10.4); Platelet Count 318 10x3/uL (130-400); RBC Distribution Width 14.6 % (11.5-14.5); Red Blood Cell (RBC) Count 5.07 mill/uL (4.70-6.10); White Blood Cell (WBC) Count 7.6 10x3/uL (4.8-10.8)
[2023-03-18 23:26] LABS: ALT (SGPT) 65 U/L (8-55); AST (SGOT) 32 U/L (5-34); Albumin 4.2 g/dL (3.5-5.0); Alkaline Phosphatase 98 U/L (40-110); Anion Gap 19 mmol/L (10-20); BUN (Urea Nitrogen) 14 mg/dL (8.9-20.6); Bilirubin, Total 0.4 mg/dL (0.2-1.2); Calc. Creatinine Clearance 0 mL/min (70-130); Carbon Dioxide 21 mmol/L (22-29); Chloride 102 mmol/L (98-107); Estimated GFR 124; Globulin 2.9 g/dL (2.4-3.5); Glucose 106 mg/dL (70-105); Lipase Less than 4 U/L (8-78); Magnesium 1.8 mg/dL (1.6-2.6); Potassium 3.7 mmol/L (3.5-5.1); Protein, Total 7.1 g/dL (6.0-8.3); Sodium 138 mmol/L (136-145)
[2023-03-19] MEDS ORDERED: Promethazine HCl 25 MG/ML VIAL ONE (01:25)
[2023-03-19] MEDS ORDERED: Morphine 4 MG/ML VIAL ONE (01:25)
== END 2023-03-19 01:57 | disposition home or self-care (01) ==
LOC: ERS 22:21
DX: R11.2 Nausea with vomiting, unspecified (principal); R10.9 Unspecified abdominal pain; Z87.891 Personal history of nicotine dependence
CPT/HCPCS: 36415; 80053; 83690; 83735; 85025; 96361; 96365; 96375; 96376; J2270; J2550

== ENCOUNTER 2023-04-06 20:15 | Emergency (ER) | payer BC, MEDICARE ==
[2023-04-06] MEDS ORDERED: Ondansetron PF 4 MG/2 ML Vial ONE (22:37)
[2023-04-06] MEDS ORDERED: Morphine 4 MG/ML VIAL ONE (22:37)
[2023-04-06 23:49] LABS: Bacteria/HPF None Seen HPF (None Seen); Bilirubin Negative (Negative); Blood, Urine Negative (Negative); CAUTI Indications for Culture Pelvic or flank pain; Calcium Oxalate Crystals 1+ HPF (None Seen); Clarity Clear (Clear); Glucose, Urine (Dipstick) 150 mg/dL (Negative); Ketone, Urine Negative (Negative); Leukocyte Negative Leu/uL (Negative); Nitrite Negative (Negative); Protein, Urine (Dipstick) 10 mg/dL (Neg-Trace); Squamous Epithelial None Seen HPF (0-3); Urobilinogen Normal mg/dL (Less than 2); WBC/HPF 0-3 HPF (0-3); pH, Urine 6.5 (5.0-9.0)
[2023-04-06 23:55] LABS: Urine Culture Reflex No No
[2023-04-07 00:13] LABS: #Basophils 0.1 thou/uL (0.0-0.2); #Eosinphils 0.4 thou/uL (0.0-0.7); #Monocytes 0.6 thou/uL (0.11-0.59); #Neutrophils 2.9 thou/uL (1.40-6.50); %Basophils 1.1 % (0.0-1.0); %Eosinophils 6.7 % (0.0-10.0); %Lymphocytes 25.2 % (21.0-51.0); %Monocytes 11.8 % (0.0-10.0); Hematocrit 39.6 % (42.0-52.0); Hemoglobin 12.5 g/dL (14.0-18.0); Mean Corpuscular HGB CONC 31.6 g/dL (32.0-36.0); Mean Corpuscular Hemoglobin 28.5 pg (27.0-31.0); Mean Corpuscular Volume 90.4 fl (78.0-98.0); Mean Platelet Volume 10.3 fL (7.4-10.4); Platelet Count 367 10x3/uL (130-400); RBC Distribution Width 15.4 % (11.5-14.5); Red Blood Cell (RBC) Count 4.38 mill/uL (4.70-6.10); White Blood Cell (WBC) Count 5.4 10x3/uL (4.8-10.8)
[2023-04-07] MEDS ORDERED: Morphine 4 MG/ML VIAL ONE ×2 (00:29→02:48)
[2023-04-07 00:37] LABS: ALT (SGPT) 87 U/L (8-55); AST (SGOT) 74 U/L (5-34); Albumin 4.4 g/dL (3.5-5.0); Alkaline Phosphatase 91 U/L (40-110); Anion Gap 13 mmol/L (10-20); BUN (Urea Nitrogen) 13 mg/dL (8.9-20.6); Bilirubin, Total 0.2 mg/dL (0.2-1.2); Calc. Creatinine Clearance 0 mL/min (70-130); Calcium 9.5 mg/dL (7.8-10.44); Carbon Dioxide 24 mmol/L (22-29); Chloride 104 mmol/L (98-107); Estimated GFR 121; Globulin 2.9 g/dL (2.4-3.5); Glucose 185 mg/dL (70-105); Lipase Less than 4 U/L (8-78); Magnesium 1.9 mg/dL (1.6-2.6); Potassium 4.8 mmol/L (3.5-5.1); Protein, Total 7.3 g/dL (6.0-8.3); Sodium 136 mmol/L (136-145)
[2023-04-07] MEDS ORDERED: metroNIDAZOLE 250 MG TAB ONE (02:03)
[2023-04-07] MEDS ORDERED: Ciprofloxacin 500 MG TAB ONE (02:05)
== END 2023-04-07 02:57 | disposition home or self-care (01) ==
LOC: ERS 20:15
DX: K52.9 Noninfective gastroenteritis and colitis, unspecified (principal); E11.9 Type 2 diabetes mellitus without complications; Z79.4 Long term (current) use of insulin; Z79.01 Long term (current) use of anticoagulants; Z87.891 Personal history of nicotine dependence
CPT/HCPCS: 74177; 80053; 81001; 83605; 83690; 83735; 85025; 96361; 96374; 96375; 96376; J2270; J2405

== ENCOUNTER 2023-05-29 11:55 | Inpatient (IN) | payer MEDICARE ==
[2023-05-29] MEDS ORDERED: Ondansetron PF 4 MG/2 ML Vial ONE (12:12)
[2023-05-29] MEDS ORDERED: Morphine 4 MG/ML VIAL ONE ×4 (12:12→16:03)
[2023-05-29 12:56] LABS: #Basophils 0.1 thou/uL (0.0-0.2); #Monocytes 0.9 thou/uL (0.11-0.59); #Neutrophils 12.7 thou/uL (1.40-6.50); %Basophils 0.4 % (0.0-1.0); %Eosinophils 0.3 % (0.0-10.0); %Lymphocytes 6.7 % (21.0-51.0); %Monocytes 6.2 % (0.0-10.0); %Neutrophils 86.1 % (42.0-75.0); Hematocrit 40.9 % (42.0-52.0); Hemoglobin 13.8 g/dL (14.0-18.0); Mean Corpuscular HGB CONC 33.7 g/dL (32.0-36.0); Mean Corpuscular Hemoglobin 28.6 pg (27.0-31.0); Mean Corpuscular Volume 84.7 fl (78.0-98.0); Mean Platelet Volume 9.7 fL (7.4-10.4); Platelet Count 339 10x3/uL (130-400); RBC Distribution Width 15.2 % (11.5-14.5); Red Blood Cell (RBC) Count 4.83 mill/uL (4.70-6.10); White Blood Cell (WBC) Count 14.7 10x3/uL (4.8-10.8)
[2023-05-29 13:20] LABS: ALT (SGPT) 50 U/L (8-55); AST (SGOT) 32 U/L (5-34); Albumin 4.9 g/dL (3.5-5.0); Alkaline Phosphatase 107 U/L (40-110); Anion Gap 21 mmol/L (10-20); BUN (Urea Nitrogen) 19 mg/dL (8.9-20.6); Bilirubin, Total 0.7 mg/dL (0.2-1.2); Calc. Creatinine Clearance 0 mL/min (70-130); Calcium 9.3 mg/dL (7.8-10.44); Carbon Dioxide 22 mmol/L (22-29); Chloride 96 mmol/L (98-107); Estimated GFR 120; Globulin 2.8 g/dL (2.4-3.5); Glucose 254 mg/dL (70-105); Lipase Less than 4 U/L (8-78); Potassium 4.1 mmol/L (3.5-5.1); Protein, Total 7.7 g/dL (6.0-8.3); Sodium 135 mmol/L (136-145)
[2023-05-29] MEDS ORDERED: Metoclopramide HCl 10 MG/2 ML VIAL ONE (13:20)
[2023-05-29] MEDS ORDERED: Haloperidol Lactate 5 MG/ML VIAL ONE (16:03)
[2023-05-29] MEDS ORDERED: Acetaminophen 325 MG TAB PO PRN (16:06)
[2023-05-29] MEDS ORDERED: Senokot S 8.6-50 MG TAB PO PRN (16:06)
[2023-05-29] MEDS ORDERED: Metoclopramide HCl 10 MG/2 ML VIAL IVP SCH (16:15)
[2023-05-29] MEDS ORDERED: HumaLOG 300 UNITS/3 ML VIAL SC PRN (16:56)
[2023-05-29] MEDS ORDERED: Dextrose 5% in Water 1,000 ML IV PRN (16:56)
[2023-05-29] MEDS ORDERED: Glucagon 1 MG/ML KIT IM PRN (16:56)
[2023-05-29] MEDS ORDERED: Dextrose 50% Abboject 50 ML SYRINGE SLOW IVP PRN (16:56)
[2023-05-29] MEDS ORDERED: PROTEASE PO SCH (17:00)
[2023-05-29] MEDS ORDERED: LIPASE PO PRN (17:00)
[2023-05-29] MEDS ORDERED: LIPASE PO SCH (17:00)
[2023-05-29] MEDS ORDERED: AMYLASE PO PRN (17:00)
[2023-05-29] MEDS ORDERED: AMYLASE PO SCH (17:00)
[2023-05-29] MEDS ORDERED: PROTEASE PO PRN (17:00)
[2023-05-29] MEDS: Morphine 2 MG/ML VIAL SLOW IVP PRN (20:02)
[2023-05-29] MEDS: Sodium Chloride 0.9% 1,000 ML IV SCH (20:03)
[2023-05-29] MEDS: Pantoprazole 40 MG VIAL IVP SCH (20:05)
[2023-05-29] MEDS: traZODone HCl 150 MG TAB PO SCH (20:05)
[2023-05-29] MEDS: risperiDONE 1 MG TAB PO SCH (20:22)
[2023-05-29] MEDS ORDERED: RisperDAL Oral Solution 1 MG/ML UDCUP PO SCH (21:00)
[2023-05-29] MEDS ORDERED: Famotidine/PF 20 mg/2ml Vial SLOW IVP SCH (21:00)
[2023-05-30] MEDS: Morphine 2 MG/ML VIAL SLOW IVP PRN ×6 (00:11→21:21)
[2023-05-30] MEDS: Ondansetron PF 4 MG/2 ML Vial IVP PRN ×3 (00:12→21:26)
[2023-05-30] MEDS ORDERED: Loratadine 10 MG TAB PO PRN (00:21)
[2023-05-30] MEDS: Sodium Chloride 0.9% 1,000 ML IV SCH ×2 (02:52→16:22)
[2023-05-30 07:25] LABS: #Basophils 0.1 thou/uL (0.0-0.2); #Monocytes 1.1 thou/uL (0.11-0.59); %Basophils 0.8 % (0.0-1.0); %Eosinophils 0.6 % (0.0-10.0); %Lymphocytes 33.3 % (21.0-51.0); %Monocytes 16.9 % (0.0-10.0); %Neutrophils 48.2 % (42.0-75.0); Hematocrit 34.1 % (42.0-52.0); Hemoglobin 11.1 g/dL (14.0-18.0); Mean Corpuscular HGB CONC 32.6 g/dL (32.0-36.0); Mean Corpuscular Hemoglobin 28.5 pg (27.0-31.0); Mean Platelet Volume 10.2 fL (7.4-10.4); Platelet Count 269 10x3/uL (130-400); RBC Distribution Width 15.4 % (11.5-14.5); White Blood Cell (WBC) Count 6.2 10x3/uL (4.8-10.8)
[2023-05-30 07:31] LABS: Hemoglobin A1c 7.7 % (4.0-6.0)
[2023-05-30 07:41] LABS: Mean Corpuscular Volume 87.4 fl (78.0-98.0)
[2023-05-30 07:50] LABS: Lipase Less than 4 U/L (8-78); Phosphorus 2.8 mg/dL (2.3-4.7)
[2023-05-30 08:03] LABS: ALT (SGPT) 34 U/L (8-55); AST (SGOT) 22 U/L (5-34); Albumin 3.7 g/dL (3.5-5.0); Alkaline Phosphatase 77 U/L (40-110); Anion Gap 13 mmol/L (10-20); BUN (Urea Nitrogen) 14 mg/dL (8.9-20.6); Bilirubin, Total 0.5 mg/dL (0.2-1.2); Calc. Creatinine Clearance 112 mL/min (70-130); Calcium 8.1 mg/dL (7.8-10.44); Carbon Dioxide 23 mmol/L (22-29); Chloride 103 mmol/L (98-107); Estimated GFR 124; Globulin 1.8 g/dL (2.4-3.5); Glucose 172 mg/dL (70-105); Potassium 3.8 mmol/L (3.5-5.1); Protein, Total 5.5 g/dL (6.0-8.3); Sodium 135 mmol/L (136-145)
[2023-05-30] MEDS: risperiDONE 1 MG TAB PO SCH ×2 (09:07→20:44)
[2023-05-30] MEDS: Pantoprazole 40 MG VIAL IVP SCH ×2 (09:08→21:26)
[2023-05-30] MEDS: traZODone HCl 150 MG TAB PO SCH (23:42)
[2023-05-31] MEDS: Morphine 2 MG/ML VIAL SLOW IVP PRN ×3 (03:57→20:01)
[2023-05-31] MEDS: Sodium Chloride 0.9% 1,000 ML IV SCH (05:40)
[2023-05-31] MEDS: Pantoprazole 40 MG VIAL IVP SCH ×2 (09:27→22:01)
[2023-05-31] MEDS: Ondansetron PF 4 MG/2 ML Vial IVP PRN ×2 (09:27→15:36)
[2023-05-31] MEDS ORDERED: Metoclopramide HCl 10 MG/2 ML VIAL IVP SCH (12:00)
[2023-05-31] MEDS ORDERED: diphenhydrAMINE 50 MG/ML VIAL IVP SCH (12:00)
[2023-05-31] MEDS: HumaLOG 300 UNITS/3 ML VIAL SC PRN (13:30)
[2023-05-31] MEDS: risperiDONE 1 MG TAB PO SCH ×2 (13:31→22:00)
[2023-05-31] MEDS: diphenhydrAMINE 50 MG/ML VIAL IVP PRN ×2 (17:58→23:58)
[2023-05-31] MEDS: Metoclopramide HCl 10 MG/2 ML VIAL IVP PRN ×2 (17:59→23:58)
[2023-05-31] MEDS: traZODone HCl 150 MG TAB PO SCH (22:01)
[2023-06-01] MEDS: Morphine 2 MG/ML VIAL SLOW IVP PRN ×3 (02:01→18:24)
[2023-06-01] MEDS: Metoclopramide HCl 10 MG/2 ML VIAL IVP PRN ×3 (06:10→21:43)
[2023-06-01] MEDS: diphenhydrAMINE 50 MG/ML VIAL IVP PRN ×3 (06:16→21:43)
[2023-06-01] MEDS: Pantoprazole 40 MG VIAL IVP SCH ×2 (09:18→23:23)
[2023-06-01] MEDS: risperiDONE 1 MG TAB PO SCH ×2 (09:27→23:23)
[2023-06-01] MEDS: Morphine 2 MG/ML VIAL SLOW IVP SCH (23:23)
[2023-06-01] MEDS: traZODone HCl 150 MG TAB PO SCH (23:23)
[2023-06-02] MEDS: Metoclopramide HCl 10 MG/2 ML VIAL IVP PRN (05:30)
[2023-06-02] MEDS: diphenhydrAMINE 50 MG/ML VIAL IVP PRN (05:30)
[2023-06-02] MEDS: Morphine 2 MG/ML VIAL SLOW IVP SCH ×3 (05:35→18:02)
[2023-06-02] MEDS: Ondansetron PF 4 MG/2 ML Vial IVP PRN (09:54)
[2023-06-02] MEDS ORDERED: Morphine 2 MG/ML VIAL ONE ×4 (10:52→13:37)
[2023-06-02] MEDS: risperiDONE 1 MG TAB PO SCH ×2 (10:53→22:55)
[2023-06-02] MEDS: Pantoprazole 40 MG VIAL IVP SCH ×2 (10:53→20:58)
[2023-06-02] MEDS ORDERED: diphenhydrAMINE 50 MG/ML VIAL ONE (10:59)
[2023-06-02] MEDS ORDERED: Metoclopramide HCl 10 MG/2 ML VIAL ONE (11:00)
[2023-06-02] MEDS ORDERED: PROPOFOL 200 MG/20 ML VIAL ONE (12:27)
[2023-06-02] MEDS ORDERED: Ondansetron PF 4 MG/2 ML Vial ONE ×2 (12:27→13:04)
[2023-06-02] MEDS ORDERED: Lidocaine 1% PF 5 ML VIAL ONE (12:27)
[2023-06-02] MEDS ORDERED: Morphine 4 MG/ML VIAL ONE (12:58)
[2023-06-02] MEDS: Morphine 2 MG/ML VIAL SLOW IVP PRN (20:58)
[2023-06-02] MEDS: traZODone HCl 150 MG TAB PO SCH (22:55)
[2023-06-03] MEDS: Morphine 2 MG/ML VIAL SLOW IVP PRN ×2 (01:52→08:13)
[2023-06-03] MEDS: Metoclopramide HCl 10 MG/2 ML VIAL IVP PRN ×2 (06:18→12:42)
[2023-06-03] MEDS: risperiDONE 1 MG TAB PO SCH ×2 (08:13→22:31)
[2023-06-03] MEDS: Pantoprazole 40 MG VIAL IVP SCH ×2 (08:13→22:31)
[2023-06-03] MEDS: Ondansetron PF 4 MG/2 ML Vial IVP PRN ×2 (11:15→16:48)
[2023-06-03] MEDS: diphenhydrAMINE 50 MG/ML VIAL IVP PRN (12:42)
[2023-06-03] MEDS: HumaLOG 300 UNITS/3 ML VIAL SC PRN (12:42)
[2023-06-03] MEDS: Sodium Chloride 0.9% 1,000 ML IV SCH (14:46)
[2023-06-03] MEDS ORDERED: Cyclobenzaprine 10 MG TAB PO SCH ×2 (16:30→22:30)
[2023-06-03] MEDS: traZODone HCl 150 MG TAB PO SCH (22:31)
[2023-06-04] MEDS: Sodium Chloride 0.9% 1,000 ML IV SCH (04:21)
[2023-06-04] MEDS: Metoclopramide HCl 10 MG/2 ML VIAL IVP PRN (04:21)
[2023-06-04] MEDS: diphenhydrAMINE 50 MG/ML VIAL IVP PRN (04:21)
[2023-06-04] MEDS: risperiDONE 1 MG TAB PO SCH (12:27)
[2023-06-04] MEDS: Pantoprazole 40 MG VIAL IVP SCH (12:28)
[2023-06-04 12:48] VITALS: TEMP 98.4
[2023-06-04 16:22] VITALS: BP 111/61
== END 2023-06-04 16:23 | disposition home or self-care (01) | DRG 392 ==
LOC: ERS 11:55 → SUATTDRO 11:55 → T4-B 16:06 → OBSVTOIN 05-31 10:51
PROVIDERS: ADMIT Internal Medicine; ATTEND Family Medicine
PROC: 0DJ08ZZ Inspection of Upper Intestinal Tract, Via Natural or Artificial Opening Endoscopic (ICD-10-PCS; principal; 2023-06-02)
DX: R11.2 Nausea with vomiting, unspecified (principal); K86.1 Other chronic pancreatitis; F39 Unspecified mood [affective] disorder; E86.0 Dehydration; E11.65 Type 2 diabetes mellitus with hyperglycemia; D63.8 Anemia in other chronic diseases classified elsewhere; F12.90 Cannabis use, unspecified, uncomplicated; K29.70 Gastritis, unspecified, without bleeding; E11.43 Type 2 diabetes mellitus with diabetic autonomic (poly)neuropathy; K44.9 Diaphragmatic hernia without obstruction or gangrene; K21.00 Gastro-esophageal reflux disease with esophagitis, without bleeding; K31.84 Gastroparesis; Z98.890 Other specified postprocedural states; Z90.49 Acquired absence of other specified parts of digestive tract; Z93.4 Other artificial openings of gastrointestinal tract status; Z88.0 Allergy status to penicillin; Z88.1 Allergy status to other antibiotic agents; Z88.8 Allergy status to other drugs, medicaments and biological substances; Z91.041 Radiographic dye allergy status; Z79.899 Other long term (current) drug therapy; Z79.4 Long term (current) use of insulin
CPT/HCPCS: 36415; 36416; 71045; 74177; 80053; 83036; 83605; 83690; 83735; 84100; 85025; 86140; 96361; 96365; 96375; 96376; C9113; G0378; J1200; J1630; J1815; J2270; J2272; J2405; J2704; J2765; J7050; Q9967

== ENCOUNTER 2023-06-05 12:02 | Emergency (ER) | payer MEDICARE ==
[2023-06-05 12:33] LABS: #Basophils 0.1 thou/uL (0.0-0.2); #Eosinphils 0.1 thou/uL (0.0-0.7); #Neutrophils 9.5 thou/uL (1.40-6.50); %Basophils 0.4 % (0.0-1.0); %Eosinophils 0.5 % (0.0-10.0); %Lymphocytes 9.2 % (21.0-51.0); %Monocytes 8.5 % (0.0-10.0); %Neutrophils 81.1 % (42.0-75.0); Hematocrit 40.4 % (42.0-52.0); Hemoglobin 13.5 g/dL (14.0-18.0); Mean Corpuscular HGB CONC 33.4 g/dL (32.0-36.0); Mean Corpuscular Hemoglobin 28.8 pg (27.0-31.0); Mean Corpuscular Volume 86.1 fl (78.0-98.0); Mean Platelet Volume 9.6 fL (7.4-10.4); Platelet Count 340 10x3/uL (130-400); RBC Distribution Width 14.9 % (11.5-14.5); Red Blood Cell (RBC) Count 4.69 mill/uL (4.70-6.10); White Blood Cell (WBC) Count 11.7 10x3/uL (4.8-10.8)
[2023-06-05] MEDS ORDERED: Morphine 2 MG/ML VIAL ONE ×3 (12:39→15:56)
[2023-06-05] MEDS ORDERED: Ondansetron PF 4 MG/2 ML Vial ONE ×2 (12:39→16:09)
[2023-06-05 12:56] LABS: ALT (SGPT) 25 U/L (8-55); AST (SGOT) 17 U/L (5-34); Albumin 4.7 g/dL (3.5-5.0); Alkaline Phosphatase 77 U/L (40-110); Anion Gap 17 mmol/L (10-20); BUN (Urea Nitrogen) 7 mg/dL (8.9-20.6); Bilirubin, Total 0.6 mg/dL (0.2-1.2); Calc. Creatinine Clearance 0 mL/min (70-130); Calcium 9.2 mg/dL (7.8-10.44); Carbon Dioxide 21 mmol/L (22-29); Chloride 99 mmol/L (98-107); Estimated GFR 121; Globulin 2.2 g/dL (2.4-3.5); Glucose 284 mg/dL (70-105); Lipase Less than 4 U/L (8-78); Magnesium 1.7 mg/dL (1.6-2.6); Potassium 3.6 mmol/L (3.5-5.1); Protein, Total 6.9 g/dL (6.0-8.3); Sodium 133 mmol/L (136-145)
[2023-06-05] MEDS ORDERED: diphenhydrAMINE 50 MG/ML VIAL ONE (13:28)
[2023-06-05] MEDS ORDERED: Metoclopramide HCl 10 MG/2 ML VIAL ONE (13:29)
[2023-06-05 13:58] LABS: SARS-CoV-2 NAA Rapid Test Not Detected (NotDetected)
[2023-06-05] MEDS ORDERED: Pantoprazole 40 MG VIAL ONE (14:00)
[2023-06-05 14:27] LABS: Troponin I Less than 0.010 ng/mL (< 0.028)
[2023-06-05 14:37] LABS: Bilirubin Negative (Negative); Blood, Urine Trace (Negative); CAUTI Indications for Culture Pelvic or flank pain; Clarity Turbid (Clear); Glucose, Urine (Dipstick) 150 mg/dL (Negative); Ketone, Urine 10 mg/dL (Negative); Leukocyte Negative Leu/uL (Negative); Nitrite Negative (Negative); Protein, Urine (Dipstick) Negative (Neg-Trace); RBC/HPF 0-3 HPF (0-3); Specific Gravity, Urine 1.018 (1.002-1.036); Squamous Epithelial 0-3 HPF (0-3); Urobilinogen Normal mg/dL (Less than 2); WBC/HPF 0-3 HPF (0-3); pH, Urine 6.5 (5.0-9.0)
[2023-06-05 14:38] LABS: Bacteria/HPF 1+ HPF (None Seen)
[2023-06-05 14:39] LABS: Urine Culture Reflex No No
== END 2023-06-05 16:24 | disposition home or self-care (01) ==
LOC: ERS 12:02
DX: R10.9 Unspecified abdominal pain (principal); G89.29 Other chronic pain; E11.9 Type 2 diabetes mellitus without complications; Z20.822 Contact with and (suspected) exposure to COVID-19; Z87.891 Personal history of nicotine dependence; Z79.84 Long term (current) use of oral hypoglycemic drugs; Z79.01 Long term (current) use of anticoagulants
CPT/HCPCS: 0240U; 80053; 81001; 83690; 83735; 84484; 85025; 86850; 86900; 86901; 93005; 36415; 96361; 96372; 96374; 96375; 96376; C9113; J1200; J1790; J2272; J2405; J2765

== ENCOUNTER 2023-12-13 17:49 | Emergency (ER) | payer OTHER ==
[2023-12-13 19:19] LABS: #Basophils 0.06 10x3/uL (0.0-0.2); %Lymphocytes 21.3 % (21.0-51.0); %Monocytes 11.6 % (0.0-10.0); %Neutrophils 63.9 % (42.0-75.0); Hematocrit 35.6 % (42.0-52.0); Hemoglobin 11.8 g/dL (14.0-18.0); Mean Corpuscular HGB CONC 33.1 g/dL (32.0-36.0); Mean Corpuscular Hemoglobin 29.6 pg (27.0-31.0); Mean Corpuscular Volume 89.4 fL (78.0-98.0); Mean Platelet Volume 10.2 fL (7.4-10.4); Platelet Count 411 10x3/uL (130-400); RBC Distribution Width 13.6 % (11.5-14.5); Red Blood Cell (RBC) Count 3.98 mill/uL (4.70-6.10)
[2023-12-13 19:49] LABS: Globulin 3.1 g/dL (2.4-3.5)
[2023-12-13 19:53] LABS: ALT (SGPT) 37 U/L (8-55); AST (SGOT) 51 U/L (5-34); Albumin 3.4 g/dL (3.5-5.0); Alkaline Phosphatase 107 U/L (40-110); Anion Gap 14 mmol/L (10-20); BUN (Urea Nitrogen) 10 mg/dL (8.9-20.6); Bilirubin, Total 0.4 mg/dL (0.2-1.2); Calc. Creatinine Clearance 0 mL/min (70-130); Carbon Dioxide 24 mmol/L (22-29); Chloride 102 mmol/L (98-107); Estimated GFR 124; Glucose 298 mg/dL (70-105); Potassium 4.6 mmol/L (3.5-5.1); Protein, Total 6.5 g/dL (6.0-8.3); Sodium 135 mmol/L (136-145)
[2023-12-13] MEDS ORDERED: Morphine 4 MG/ML VIAL ONE (22:45)
[2023-12-13] MEDS ORDERED: Pantoprazole 40 MG VIAL ONE (22:45)
[2023-12-13] MEDS ORDERED: Polyethylene Glycol 3350 17 GM Packet PO SCH (23:00)
[2023-12-13 23:22] LABS: Bacteria/HPF None Seen HPF (None Seen); Bilirubin Negative (Negative); Blood, Urine Negative (Negative); CAUTI Indications for Culture Dysuria,urgency,freq; Calcium Oxalate Crystals 2+ HPF (None Seen); Clarity Clear (Clear); Glucose, Urine (Dipstick) Greater than 1000 mg/dL (Negative); Ketone, Urine Negative (Negative); Leukocyte Negative Leu/uL (Negative); Nitrite Negative (Negative); Protein, Urine (Dipstick) Negative (Neg-Trace); RBC/HPF 0-3 HPF (0-3); Specific Gravity, Urine 1.034 (1.002-1.036); Squamous Epithelial None Seen HPF (0-3); Urobilinogen Normal mg/dL (Less than 2); WBC/HPF None Seen HPF (0-3); pH, Urine 6.5 (5.0-9.0)
[2023-12-13 23:24] LABS: Urine Culture Reflex No No
== END 2023-12-13 23:13 | disposition home or self-care (01) ==
LOC: ERS 17:49
DX: K59.00 Constipation, unspecified (principal); J45.909 Unspecified asthma, uncomplicated; E11.9 Type 2 diabetes mellitus without complications; K31.84 Gastroparesis; K86.1 Other chronic pancreatitis; F17.210 Nicotine dependence, cigarettes, uncomplicated; Z79.4 Long term (current) use of insulin; Z55.6 Problems related to health literacy; Z79.899 Other long term (current) drug therapy
CPT/HCPCS: 36415; 74177; 80053; 81001; 83605; 83690; 85025; 86850; 86900; 86901; 96361; 96374; 96375; C9113; J2270; Q9967

== ENCOUNTER 2024-01-20 18:45 | Emergency (ER) | payer OTHER ==
[2024-01-20] MEDS ORDERED: Morphine 4 MG/ML VIAL ONE (19:12)
[2024-01-20] MEDS ORDERED: Morphine 2 MG/ML VIAL ONE (19:12)
[2024-01-20] MEDS ORDERED: Ondansetron PF 4 MG/2 ML Vial ONE ×2 (19:12→21:20)
[2024-01-20 19:40] LABS: #Basophils 0.06 10x3/uL (0.0-0.2); #Eosinphils Less than 0.03 10x3/uL (0.0-0.7); %Basophils 0.9 % (0.0-1.0); %Eosinophils 0.1 % (0.0-10.0); %Lymphocytes 11.9 % (21.0-51.0); %Monocytes 6.6 % (0.0-10.0); %Neutrophils 80.4 % (42.0-75.0); Hematocrit 41.1 % (42.0-52.0); Hemoglobin 13.3 g/dL (14.0-18.0); Mean Corpuscular HGB CONC 32.4 g/dL (32.0-36.0); Mean Corpuscular Hemoglobin 29.6 pg (27.0-31.0); Mean Corpuscular Volume 91.5 fL (78.0-98.0); Mean Platelet Volume 10.5 fL (7.4-10.4); Platelet Count 248 10x3/uL (130-400); RBC Distribution Width 14.4 % (11.5-14.5); Red Blood Cell (RBC) Count 4.49 mill/uL (4.70-6.10)
[2024-01-20 20:03] LABS: Lipase Less than 4 U/L (8-78)
[2024-01-20 20:06] LABS: Acetaminophen Less than 10 mcg/mL (10.0-30.0); Alcohol Less than 10.0 mg/dL (Less than 10); Salicylate Less than 8.0 mg/dL (15.0-30.0)
[2024-01-20 20:08] LABS: ALT (SGPT) 77 U/L (8-55); AST (SGOT) 50 U/L (5-34); Albumin 3.7 g/dL (3.5-5.0); Alkaline Phosphatase 104 U/L (40-110); Anion Gap 12 mmol/L (10-20); BUN (Urea Nitrogen) 7 mg/dL (8.9-20.6); Bilirubin, Total 0.3 mg/dL (0.2-1.2); Calc. Creatinine Clearance 0 mL/min (70-130); Calcium 8.6 mg/dL (7.8-10.44); Carbon Dioxide 17 mmol/L (22-29); Chloride 105 mmol/L (98-107); Estimated GFR 125; Glucose 167 mg/dL (70-105); Potassium 4.2 mmol/L (3.5-5.1); Protein, Total 6.7 g/dL (6.0-8.3); Sodium 130 mmol/L (136-145)
[2024-01-20 20:44] LABS: Bacteria/HPF None Seen HPF (None Seen); Bilirubin Negative (Negative); Blood, Urine Negative (Negative); CAUTI Indications for Culture Pelvic or flank pain; Clarity Clear (Clear); Glucose, Urine (Dipstick) Normal (Negative); Ketone, Urine 20 mg/dL (Negative); Leukocyte Negative Leu/uL (Negative); Nitrite Negative (Negative); Protein, Urine (Dipstick) Negative (Neg-Trace); RBC/HPF 0-3 HPF (0-3); Specific Gravity, Urine 1.045 (1.002-1.036); Squamous Epithelial 0-3 HPF (0-3); Urobilinogen Normal mg/dL (Less than 2); WBC/HPF 0-3 HPF (0-3)
[2024-01-20 20:46] LABS: Urine Culture Reflex No No
[2024-01-20 20:51] LABS: Amphetamine Not Detected (NotDetected); Barbiturates Screen Not Detected (NotDetected); Benzodiazepine Screen Not Detected (NotDetected); Cocaine Metabolite Screen Not Detected (NotDetected); Methadone Not Detected (NotDetected); Methamphetamine Not Detected (NotDetected); Opiate Screen Detected (NotDetected); Oxycodone Screen Not Detected (NotDetected); Phencyclidine (PCP) Not Detected (NotDetected); THC/Cannabinoid Screen Detected (NotDetected); Tricyclic Screen Not Detected (NotDetected)
[2024-01-20] MEDS ORDERED: Milk Of Magnesia 30 ML UDCUP ONE (21:20)
[2024-01-20] MEDS ORDERED: Mag-Al 1200 mg/1200 mg/30 ML UDCUP ONE (21:24)
== END 2024-01-20 21:35 | disposition home or self-care (01) ==
LOC: ERS 18:45
DX: R10.9 Unspecified abdominal pain (principal); R11.2 Nausea with vomiting, unspecified; R19.7 Diarrhea, unspecified; E11.9 Type 2 diabetes mellitus without complications; Z79.4 Long term (current) use of insulin
CPT/HCPCS: 74177; 80053 ×2; 80306; 80307; 81001; 82550; 83605; 83690 ×2; 85025 ×2; 96361 ×2; 96365; 96374; 96375 ×2; 99284 ×2; C9113; J2270 ×2; J2272 ×2; J2405; J2550; Q9967; 36415; J3010